=== PATIENT | male | born 2000 | race African-American/Black ===

== ENCOUNTER 2021-11-09 21:13 | Emergency (ER) | payer OTHER ==
[2021-11-09 23:17] LABS: SARS-COV-2 RT PCR NEGATIVE (NEGATIVE)
--- NOTE | 2021-11-10 00:30 | ER ---
Nurse's Notes [facility] Name: Mook Gross Age: 21 yrs Sex: Male : 2000 Arrival Date: 11/09/2021 Time: 21:16 Bed 11 Private MD: Diagnosis: Otitis media, unspecified, right ear;Acute upper respiratory infection, unspecified Presentation: 11/09 22:11 Chief complaint: Patient states: I started feeling sick last night before I went to [facility] bed, headache, chest pain with cough. 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 Coronavirus screen: Vaccine status: Patient reports being unvaccinated. Client denies travel out of the [place] in the last 14 days. cough unrelated to allergies, fatigue, headache, shortness of breath, Client presents with at least one sign or symptom that may indicate coronavirus-19. Standard/surgical mask placed on the client. Ebola Screen: No symptoms or risks identified at this time. Initial Sepsis Screen: Does the patient meet any 2 criteria? No. Patient's initial sepsis screen is negative. Does the patient have a suspected source of infection? No. Patient's initial sepsis screen is negative. Risk Assessment: Do you want to hurt yourself or someone else? Patient reports no desire to harm self or others. Onset of symptoms was November 08, 2021. 22:11 Method Of Arrival: Ambulatory [facility] 22:11 Acuity: JULIANNA 4 vc1 Historical: - Allergies: 22:17 No Known Allergies; vc1 - Home Meds: 22:17 None [Active]; vc1 - PMHx: 22:17 None; vc1 - PSHx: 22:17 None; vc1 Screenin/12 00:48 Abuse screen: Denies threats or abuse. Nutritional screening: No deficits noted. bb Tuberculosis screening: No symptoms or risk factors identified. Fall Risk None identified. Assessment: 00:48 Reassessment: Patient is alert, oriented x 3, equal unlabored respirations, skin bb warm/dry/pink. pt seen by this RN at discharge pt verbalized understanding of and agrees to plan of care discharge instructions given pt ambulated with steady gait to exit. Vital Signs: 11/09 22:11 BP 108 / 70; Pulse 80; Resp 18; Temp 98.3; Pulse Ox 100% ; Weight 83.91 kg; Height 5 vc1 ft. 6 in. (167.64 cm); Pain 0/10; 22:11 Body Mass Index 29.86 (83.91 kg, 167.64 cm) vc1 ED Course: 21:16 Patient arrived in ED. kc5 22:17 Triage completed. vc1 23:59 Dalton Davis PA is PHCP. cp 23:59 Kwasi Ritchie MD is Attending Physician. cp 11/10 00:48 Patient has correct armband on for positive identification. bb 00:48 No provider procedures requiring assistance completed. Patient did not have IV access bb during this emergency room visit. Administered Medications: No medications were administered Outcome: 00:29 Discharge ordered by . cp 00:48 Discharged to home ambulatory. bb 00:48 Condition: stable 00:48 Discharge instructions given to patient, Instructed on discharge instructions, follow up and referral plans. medication usage, Demonstrated understanding of instructions, follow-up care, medications, Prescriptions given X 2. 00:49 Patient left the ED. bb Signatures: Lisa Shields, RN RN Dalton Barajas PA PA cp Clark, Kasey kc5 Isabel Persaud RN RN vc1
--- NOTE | 2021-11-10 00:30 | EDPHYS ---
Physician Documentation [facility] Name: Mook Gross Age: 21 yrs Sex: Male : 2000 Arrival Date: 11/09/2021 Time: 21:16 Bed 11 Private MD: ED Physician Kwasi Ritchie HPI: 11/10 00:20 This 21 yrs old Black Male presents to ER via Ambulatory with complaints of Cough, cp Shortness Of Breath, Fever, Headache. 00:20 The patient or guardian reports cough, that is intermittent, with no sputum. Onset: The cp symptoms/episode began/occurred yesterday. Severity of symptoms: in the emergency department the symptoms are unchanged, despite home interventions. Associated signs and symptoms: Pertinent positives: chest pain, with cough, sore throat, headache, Pertinent negatives: diarrhea, fever, vomiting. Historical: - Allergies: 11/09 22:17 No Known Allergies; vc1 - Home Meds: 22:17 None [Active]; vc1 - PMHx: 22:17 None; vc1 - PSHx: 22:17 None; vc1 ROS: 11/10 00:22 Eyes: Negative for injury, pain, redness, and discharge. cp Constitutional: Negative for body aches, chills, fever, poor PO intake. ENT: Positive for sore throat, Negative for difficulty swallowing, difficulty handling secretions. Cardiovascular: Positive for chest pain, with cough. Respiratory: Positive for cough, with no reported sputum, Negative for wheezing. Abdomen/GI: Negative for abdominal pain, vomiting, diarrhea, constipation. Neuro: Negative for altered mental status, headache, weakness. All other systems are negative. Exam: 00:22 Head/Face: Normocephalic, atraumatic. cp 00:22 Constitutional: The patient appears in no acute distress, alert, awake, non-toxic, well developed, well nourished. 00:22 Eyes: Periorbital structures: appear normal, Conjunctiva: normal, no exudate, no injection, Lids and lashes: appear normal, bilaterally. 00:22 ENT: External ear(s): are unremarkable, Ear canal(s): are normal, clear, TM's: erythema, that is moderate, on the right, Nose: is normal, Mouth: Lips: moist, Oral mucosa: moist, Posterior pharynx: Airway: no evidence of obstruction, patent, Tonsils: no enlargement, no exudate, erythema, that is mild, exudate, is not appreciated. 00:22 Neck: ROM/movement: is normal, is supple, without pain, no range of motions limitations, no meningismus, Lymph nodes: no appreciated lymphadenopathy. 00:22 Chest/axilla: Inspection: normal, Palpation: is normal, no crepitus, no tenderness. 00:22 Cardiovascular: Rate: normal, Rhythm: regular. 00:22 Respiratory: the patient does not display signs of respiratory distress, Respirations: normal, no use of accessory muscles, no retractions, labored breathing, is not present, Breath sounds: bronchial sounds, are not appreciated, decreased breath sounds, are not appreciated, stridor, is not appreciated, + upper airway congestion. 00:22 Abdomen/GI: Exam negative for discomfort, distension, guarding, Inspection: abdomen appears normal. 00:22 Neuro: Orientation: to person, place \\T\\ time. Mentation: is normal, Gait: is steady, at a normal pace, without difficulty. Vital Signs: 11/09 22:11 BP 108 / 70; Pulse 80; Resp 18; Temp 98.3; Pulse Ox 100% ; Weight 83.91 kg; Height 5 vc1 ft. 6 in. (167.64 cm); Pain 0/10; 22:11 Body Mass Index 29.86 (83.91 kg, 167.64 cm) vc1 MDM: 11/10 00:04 Patient medically screened. cp 00:05 Differential Diagnosis: Bronchitis Influenza Upper Respiratory Infection Sinusitis cp Otitis Media Pneumonia Other COVID-19. 00:28 Data reviewed: vital signs, nurses notes, lab test result(s). cp 00:28 Counseling: I had a detailed discussion with the patient and/or guardian regarding: the cp historical points, exam findings, and any diagnostic results supporting the discharge/admit diagnosis, lab results, to return to the emergency department if symptoms worsen or persist or if there are any questions or concerns that arise at home. ED course: VSS. Patient appears non-toxic and no signs of respiratory distress. Will discharge to home for continued monitoring. 11/09 22:26 Order name: COVID-19/FLU A+B (Document "Date of Onset" if Symptomatic); Complete Time: al4 00:00 01/12 00:00 Interpretation: Reviewed. cp Administered Medications: No medications were administered Disposition: 10:08 Co-signature as Attending Physician, Kwasi Ritchie MD I agree with the assessment and sp3 plan of care. Disposition Summary: 11/10/21 00:29 Discharge Ordered Location: Home cp Problem: new cp Symptoms: are unchanged cp Condition: Stable cp Diagnosis - Otitis media, unspecified, right ear cp - Acute upper respiratory infection, unspecified cp Followup: cp - With: Private Physician - When: 2 - 3 days - Reason: Worsening of condition Discharge Instructions: - Discharge Summary Sheet cp - Otitis Media, Adult cp - Upper Respiratory Infection, Adult cp Forms: - Medication Reconciliation Form cp - Thank You Letter cp - Antibiotic Education cp - Prescription Opioid Use cp Prescriptions: - Amoxicillin 875 mg Oral Tablet - take 1 tablet by ORAL route every 12 hours for 10 days; 20 tablet; Refills: 0, cp Product Selection Permitted - Tessalon Perles 100 mg Oral Capsule - take 2 capsule by ORAL route every 8 hours As needed; 30 capsule; Refills: 0, cp Product Selection Permitted Signatures: Dispatcher [employer] EDMN Dalton Davis PA PA cp Kwasi Ritchie MD MD sp3 Isabel Persaud RN RN vc1
[2021-11-10 01:38] VITALS: BP 108/70; TEMP 98.3; O2SAT 100
== END 2021-11-10 00:49 | disposition home or self-care (01) ==
LOC: ER 21:13
DX: J06.9 Acute upper respiratory infection, unspecified (principal); H66.91 Otitis media, unspecified, right ear; Z20.822 Contact with and (suspected) exposure to COVID-19
CPT/HCPCS: 0240U; 99282